=== PATIENT | male | born 1985 | race Caucasian/White ===

== ENCOUNTER 2020-06-12 19:57 | Emergency (ER) | payer MEDICAID ==
[~2020-06-12] VITALS: Ht 177.8 cm; Wt 68.0 kg
[2020-06-12 20:13] VITALS: BP 130/82
--- NOTE | 2020-06-12 20:23 | NUR ---
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 PATIENT STATES THAT HE WAS CHOPPING VEGETABLES WHEN HE SLICED HIMSELF ON THE THUMB. BLEEDING IS STOPPED WITH A 4x4 GAUZE. AAOX4 NOSOB. BREATHING EVENLY AND UNLABORED ON ROOM AIR.
[2020-06-12] MEDS ORDERED: LIDOCAINE 2% 20 ML MDV TP ONE (20:30)
[2020-06-12] MEDS ORDERED: IBUPROFEN 600 MG TABLET PO ONE ×2 (20:30→20:31)
[2020-06-12] MEDS ORDERED: LIDOCAINE 2% 20 ML MDV ONE (20:31)
--- NOTE | 2020-06-12 21:05 | NUR ---
STERI-STRIPS WITH GLUE APPLIED TO RIGHT THUMB
--- NOTE | 2020-06-12 21:19 | NUR ---
Patient discharged to home in stable condition. Written and verbal after care instructions given. Patient verbalizes understanding of instruction.
== END 2020-06-12 21:26 | disposition home or self-care (01) ==
LOC: ER 19:57
DX: S61.011A Laceration without foreign body of right thumb without damage to nail, initial encounter (principal); W26.0XXA Contact with knife, initial encounter; Y93.89 Activity, other specified; Y92.89 Other specified places as the place of occurrence of the external cause; Y99.8 Other external cause status
CPT/HCPCS: 12001; 99282; J3490

== ENCOUNTER 2020-07-16 22:44 | Emergency (ER) | payer MEDICAID ==
[~2020-07-16] VITALS: Ht 175.3 cm; Wt 68.0 kg
[2020-07-16 22:45] VITALS: BP 129/86
--- NOTE | 2020-07-16 23:19 | NUR ---
radiology at bedside.
== END 2020-07-16 23:34 | disposition home or self-care (01) ==
LOC: ER 22:51
DX: R07.89 Other chest pain (principal)
CPT/HCPCS: 71045-TC